=== PATIENT | female | born 1935 | race Caucasian/White ===

== ENCOUNTER → 2024-05-11 | Emergency (ER) | payer BC, MEDICARE, OTHER ==
[~2024-05-11] VITALS: Ht 157.5 cm; Wt 54.4 kg
[~2024-05-11] MED LIST: ACETAMINOPHEN 325 MG TABLET ONE; NEOMY/BACITRA/POLYMYXIN B OINT UD PACKET TP ONE; Procrit; Simvastatin
[2024-05-11] MEDS: ACETAMINOPHEN 500 MG TABLET PO ONE (22:06)
[2024-05-11] MEDS: NEOMY/BACITRA/POLYMYXIN B OINT UD PACKET TP ONE (22:18)
[2024-05-11 23:26] VITALS: BP 176/72; O2SAT 98
== END | disposition home or self-care (01) ==
LOC: ER 21:35
DX: S06.0X0A Concussion without loss of consciousness, initial encounter (principal); S00.83XA Contusion of other part of head, initial encounter; S80.01XA Contusion of right knee, initial encounter; S80.211A Abrasion, right knee, initial encounter; S00.31XA Abrasion of nose, initial encounter; I10 Essential (primary) hypertension; E78.5 Hyperlipidemia, unspecified; R41.0 Disorientation, unspecified; R55 Syncope and collapse; W01.0XXA Fall on same level from slipping, tripping and stumbling without subsequent striking against object, initial encounter; Y93.01 Activity, walking, marching and hiking; Y92.89 Other specified places as the place of occurrence of the external cause; Y99.8 Other external cause status
CPT/HCPCS: 70450; 70486; A4606; A4663